=== PATIENT | female | born 1975 | race Caucasian/White ===

== ENCOUNTER 2018-10-12 22:05 | Inpatient (IN) | payer MEDICAID, OTHER ==
[~2018-10-12] VITALS: Ht 167.6 cm; Wt 68.6 kg
[2018-10-12 22:10] VITALS: Ht 167.6 cm; Wt 68.6 kg
[2018-10-12] MEDS ORDERED: morphine 4 MG/ML VIAL IV STA (22:54)
[2018-10-12] MEDS ORDERED: ONDANSETRON 4 MG INJ IV STA (22:54)
[2018-10-12] MEDS ORDERED: SOD CHLORIDE 0.9% 1,000 ML IV ONE (23:00)
[2018-10-13] VITALS (19 sets, daily range): BP systolic 80–110; BP diastolic 46–72; PULSE 56–88; RESP 15–20
--- NOTE | 2018-10-13 03:30 | CONS ---
Date/Time of Note Date/Time of Note DATE: 10/13/18 TIME: 03:09 Assessment/Plan Assessment/Plan Assessment/Plan A molar P suction curettage Result Diagram: 10/12/180 10/12/180 Results 24hrs Laboratory Tests Test 10/12/18 22:40 10/12/18 23:20 White Blood Count 10.5 Red Blood Count 4.01 L Hemoglobin 12.5 Hematocrit 37.1 Mean Corpuscular Volume 92.5 Mean Corpuscular Hemoglobin 31.2 Mean Corpuscular Hemoglobin Concent 33.7 Red Cell Distribution Width 12.3 Platelet Count 227 Mean Platelet Volume 11.7 H Immature Granulocytes % 0.200 Neutrophils % 47.7 Lymphocytes % 44.1 Monocytes % 6.4 Eosinophils % 1.1 Basophils % 0.5 Nucleated Red Blood Cells % 0.0 Immature Granulocytes # 0.020 Neutrophils # 5.0 Lymphocytes # 4.6 H Monocytes # 0.7 Eosinophils # 0.1 Basophils # 0.1 Nucleated Red Blood Cells # 0.0 Prothrombin Time 11.4 L Prothrombin Time Ratio 0.9 INR International Normalized Ratio 0.82 Sodium Level 141 Potassium Level 3.8 Chloride Level 108 Carbon Dioxide Level 27 Anion Gap 6 Blood Urea Nitrogen 10 Creatinine 0.58 Est Glomerular Filtrat Rate mL/min > 60 Glucose Level 117 Calcium Level 9.4 Total Bilirubin 0.1 L Direct Bilirubin 0.00 Indirect Bilirubin 0.1 Aspartate Amino Transf (AST/SGOT) 26 Alanine Aminotransferase (ALT/SGPT) 19 Alkaline Phosphatase 52 Total Protein 7.1 Albumin 4.0 Globulin 3.10 Albumin/Globulin Ratio 1.29 Beta HCG, Quantitative 44403.0 Urine Color YELLOW Urine Clarity CLEAR Urine pH 9.0 Urine Specific [place] 1.009 Urine Ketones NEGATIVE Urine Nitrite NEGATIVE Urine Bilirubin NEGATIVE Urine Urobilinogen NEGATIVE Urine Leukocyte Esterase NEGATIVE Urine Microscopic RBC 148 H Urine Microscopic WBC 1 Urine Hemoglobin 3+ H Urine Glucose NEGATIVE Urine Total Protein NEGATIVE Consultation Date/Type/Reason Admit Date/Time 10/13/18 Date of Consultation: Oct 13, 2018 Type of Consult PIPE THREADER Reason for Consultation Vaginal bleeding/molar Requesting Provider: PRISCILA UPTON MD Hx of Present Illness 43 y.o LMP ? ( her period been very irregular ,sometimes skip and sometimes period prolong) presents ER with vaginal bleeding with cramping pain intermittently since yesterday evening. She did EPT few times due to nausea and which was positive and checked at clinic 4days ago ,told that every thing ok without U/s U/S in ER shows possible molar explained the situation and suction curettage will be prepared. as in HPI Constitutional: no complaints, improved Eyes: no complaints ENT: no complaints Respiratory: no complaints Cardiovascular: no complaints Gastrointestinal: no complaints, pain (u/s mass in utero poss molar ) Genitourinary: no complaints, bleeding Musculoskeletal: no complaints Skin: no complaints Neurologic: no complaints Endocrine: no complaints Lymphatic: no complaints Psychological: no complaints, nl mood/affect Immunologic: no complaints Past Medical History Medical History: no pertinent history Medications none Allergies: Coded Allergies: No Known Allergy (Unverified , 10/12/18) Past Surgical History x3 Past Surgical Hx: no surgical history Family History Significant Family History: no pertinent family hx Social History Alcohol Use: none Smoking Status: Current every day smoker Drug Use: none Exam/Review of Systems Vital Signs Vitals Vital Signs Date Temp Pulse Resp B/P (MAP) Pulse Ox O2 O2 Flow FiO2 Time Delivery Rate 10/13/18 98.2 67 16 116/70 100 Room Air 01:30 (85) Exam Constitutional: alert, oriented, well developed Psych: no complaints, nl mood/affect Head: normocephalic, atraumatic Eyes: nl conjunctiva, EOMI, nl lids, nl sclera, PERRL ENMT: nl external ears & nose, nl lips & teeth, nl nasal mucosa & septum Neck: supple, non-tender Respiratory: clear to auscultation, normal air movement Cardiovascular: regular rate and rhythm, nl pulses Gastrointestinal: soft, nl liver, spleen, non-tender Genitourinary - Female: uterus (enlarged ) Musculoskeletal: nl extremities to inspection, nl gait and stance Extremities: normal pulses Neurological: CLOTH TRIMMER HAND II-XII intact, nl mental status, nl speech, nl strength Skin: nl turgor; No rash or lesions Lymph: nl lymph nodes KIMMIE WILKINSON MD Oct 13, 2018 03:25
[2018-10-13] MEDS ORDERED: ONDANSETRON 4 MG INJ IV PRN ×2 (04:00→06:30)
[2018-10-13] MEDS ORDERED: ACETAMINOPHEN 325 MG TAB PO PRN (04:00)
--- NOTE | 2018-10-13 06:00 | NUR ---
PATIENT CAME FROM ER.PICKED UP BY TRANSPORT TO SURGERY.PATIENT HAVING SURGERY .ALL BELONGINGS TAKEN BY .
--- NOTE | 2018-10-13 06:07 | PREAC ---
Date/Time of Note Date/Time of Note DATE: 10/13/18 TIME: 06:06 Anesthesia Eval and Record Evaluation Time Pre-Procedure Interview DATE: 10/13/18 TIME: 06:06 Age 43 Sex female NPO: 8 hrs Preoperative diagnosis molar Planned procedure suction D&C Past Medical History Past Medical History: None Surgery & Anesthesia Issues No known issue Meds Anticoagulation: Yes Beta Deepika within 24 hr: Yes Reason Beta Deepika not given: Pt. not on B-Deepika Current Medications Ondansetron HCl (Zofran Inj) 4 mg BRIDGE ORDER PRN IV NAUSEA AND/OR VOMITING; Start 10/13/18 at 04:00; Stop 10/14/18 at 03:59 Acetaminophen (Tylenol Tab) 650 mg ER BRIDGE PRN PO MILD PAIN(1-3)OR ELEVATED TEMP; Start 10/13/18 at 04:00; Stop 10/14/18 at 03:59 Meds reviewed: Yes Allergies Coded Allergies: No Known Allergy (Unverified , 10/12/18) Allergies Reviewed: Yes Labs/Studies Labs Reviewed: Reviewed by anesthesiologist Result Diagram: 10/12/180 10/12/18 2240 Laboratory Tests 10/12/18 22:40 Blood Bank Test 10/12/18 22:40 Blood Type A POSITIVE test: Positive Studies: ECG (n/a), CXR (n/a) Pre-procedure Exam Last vitals Vital Signs Date Temp Pulse Resp B/P (MAP) Pulse Ox O2 O2 Flow FiO2 Time Delivery Rate 10/13/18 97.8 61 18 110/60 95 Room Air 05:44 (77) Airway: Adequate mouth opening Mallampati: Mallampati I Teeth: Normal Lung: Normal Heart: Normal ASA Physical Status ASA physical status: 1 Emergency: None Planned Anesthetic General/MAC: LMA Planned Pain Management Parenteral pain med Pre-operative Attestations Prior to commencing anesthesia and surgery, the patient was re-evaluated, there was verification of: *The patient's identity *The results of appropriate recent lab work and preoperative vital signs *The above evaluation not changing prior to induction *Anesthetic plan, risk benefits, alternative and complications discussed with patient/family; questions answered; patient/family understands, accepts and wishes to proceed. MELANIE SANTOS MD Oct 13, 2018 06:07
[2018-10-13] MEDS ORDERED: METOCLOPRAMIDE 10 MG INJ ONE (06:13)
[2018-10-13] MEDS ORDERED: MIDAZOLAM 1 MG/ML 2 ML INJ ONE (06:13)
[2018-10-13] MEDS ORDERED: CEFAZOLIN 1 GM INJ ONE (06:13)
[2018-10-13] MEDS ORDERED: ONDANSETRON 4 MG INJ ONE (06:13)
[2018-10-13] MEDS ORDERED: PROPOFOL 20 ML ONE (06:13)
[2018-10-13] MEDS ORDERED: KETOROLAC 30 MG INJ ONE (06:15)
[2018-10-13] MEDS ORDERED: FENTAnyl 50 MCG/ML VIAL ONE (06:16)
--- NOTE | 2018-10-13 06:18 | ERD ---
ER Documentation Chief Complaint Chief Complaint abd pain/vaginal bleeding x 30 min. states , <3 months HPI This is a 43-year-old female with no significant past medical history who is approximately 2 months who is presenting with sudden onset moderate cramping lower abdominal pain without alleviating or exacerbating factors in addition to significant vaginal bleeding. She does not endorse any obvious clot s. She has not had any vaginal discharge or loss of fluid. She does not believe she could have a sexually transmitted infection. The patient felt fine prior to onset of her symptoms approximately 30 minutes prior to arrival to the emergency department. The patient denies feeling sick recently. The patient denies fever or chills. The patient has had no headache or vision changes. The patient does not endorse neck or back pain. The patient denies lightheadedness or dizziness. The patient has had no chest pain or trouble breathing. The patient denies nausea or vomiting. The patient denies changes to bowel movements or urination. The patient has had no focal deficits. The patient has had no weakness or numbness or tingling to the face or extremities. ROS All systems reviewed and are negative except as per history of present illness. Allergies Allergies: Coded Allergies: No Known Allergy (Unverified , 10/12/18) PMhx/Soc Medical and Surgical Hx: pt denies Medical Hx, pt denies Surgical Hx History of Surgery: No Anesthesia Reaction: No Hx Neurological Disorder: No Hx Respiratory Disorders: No Hx Cardiac Disorders: No Hx Psychiatric Problems: No Hx Miscellaneous Medical Probl: No Hx Alcohol Use: No Hx Substance Use: No Hx Tobacco Use: No Smoking Status: Current every day smoker FmHx Family History: No diabetes Physical Exam Vitals Vital Signs Date Temp Pulse Resp B/P (MAP) Pulse Ox O2 O2 Flow FiO2 Time Delivery Rate 10/13/18 98.7 68 18 118/72 100 Room Air 03:35 (87) 10/13/18 98.2 67 16 116/70 100 Room Air 01:30 (85) 10/12/18 98.1 64 17 119/87 100 Room Air 23:27 (98) 10/12/18 97.3 92 18 156/85 100 22:10 (108) Physical Exam Const: No apparent distress, well-developed, well-nourished Head: Normocephalic, Atraumatic Eyes: Normal Conjunctiva. Extraocular movements intact. Pupils equal, round and reactive to light ENT: Normal External Ears, Nose and Mouth. Neck: Full range of motion. No meningismus. Resp: Clear to auscultation bilaterally, No wheezes, rales or rhonchi Cardio: Regular rate and rhythm. No murmurs, rubs or gallops Abd: Soft, non distended. Lower abdominal tenderness. Normal bowel sounds : Vaginal bleeding Skin: No petechiae or rashes Back: No midline tenderness. No CVA tenderness Ext: No cyanosis, or edema Neur: Awake and alert, oriented 4. Cranial nerves intact. No facial droop. Normal strength, sensation and coordination. Psych: Normal Mood and Affect Result Diagram: 10/12/18223910/12/182239 Results 24 hrs Laboratory Tests Test 10/12/18 22:40 10/12/18 23:20 White Blood Count 10.5 10^3/ul Red Blood Count 4.01 10^6/ul Hemoglobin 12.5 g/dl Hematocrit 37.1 % Mean Corpuscular Volume 92.5 fl Mean Corpuscular Hemoglobin 31.2 pg Mean Corpuscular Hemoglobin Concent 33.7 g/dl Red Cell Distribution Width 12.3 % Platelet Count 227 10^3/UL Mean Platelet Volume 11.7 fl Immature Granulocytes % 0.200 % Neutrophils % 47.7 % Lymphocytes % 44.1 % Monocytes % 6.4 % Eosinophils % 1.1 % Basophils % 0.5 % Nucleated Red Blood Cells % 0.0 /100WBC Immature Granulocytes # 0.020 10^3/ul Neutrophils # 5.0 10^3/ul Lymphocytes # 4.6 10^3/ul Monocytes # 0.7 10^3/ul Eosinophils # 0.1 10^3/ul Basophils # 0.1 10^3/ul Nucleated Red Blood Cells # 0.0 10^3/ul Prothrombin Time 11.4 Sec Prothrombin Time Ratio 0.9 INR International Normalized Ratio 0.82 Sodium Level 141 mmol/L Potassium Level 3.8 mmol/L Chloride Level 108 mmol/L Carbon Dioxide Level 27 mmol/L Anion Gap 6 Blood Urea Nitrogen 10 mg/dl Creatinine 0.58 mg/dl Est Glomerular Filtrat Rate mL/min > 60 mL/min Glucose Level 117 mg/dl Calcium Level 9.4 mg/dl Total Bilirubin 0.1 mg/dl Direct Bilirubin 0.00 mg/dl Indirect Bilirubin 0.1 mg/dl Aspartate Amino Transf (AST/SGOT) 26 IU/L Alanine Aminotransferase (ALT/SGPT) 19 IU/L Alkaline Phosphatase 52 IU/L Total Protein 7.1 g/dl Albumin 4.0 g/dl Globulin 3.10 g/dl Albumin/Globulin Ratio 1.29 Beta HCG, Quantitative 74477.0 mIU/ml Urine Color YELLOW Urine Clarity CLEAR Urine pH 9.0 Urine Specific [place] 1.009 Urine Ketones NEGATIVE mg/dL Urine Nitrite NEGATIVE mg/dL Urine Bilirubin NEGATIVE mg/dL Urine Urobilinogen NEGATIVE mg/dL Urine Leukocyte Esterase NEGATIVE David/ul Urine Microscopic RBC 148 /HPF Urine Microscopic WBC 1 /HPF Urine Hemoglobin 3+ mg/dL Urine Glucose NEGATIVE mg/dL Urine Total Protein NEGATIVE mg/dl Current Medications Medications Dose Sig/Catherine Start Time Status Last (Trade) Ordered Route PRN Stop Time Admin Dose Reason Admin Morphine 4 mg ONCE STAT 10/12/18 DC 10/12/18 Sulfate IV 22:54 23:46 (morphine) 10/12/18 22:55 Ondansetron 4 mg ONCE STAT 10/12/18 DC 10/12/18 HCl (Zofran IV 22:54 23:44 Inj) 10/12/18 22:55 Sodium 1,000 ml @ Q1H ONCE 10/12/18 DC 10/12/18 Chloride 1,000 mls/hr IV 23:00 23:44 10/12/18 23:59 Procedures/MDM MDM The patient's presentation warrants further investigation. Previous medical records, if available, were reviewed. LABS The patient's laboratory testing was obtained and reviewed. No emergent treatment was required unless described below. CBC: No E/o of systemic infection or severe anemia or thrombocytopenia CMP: No E/o severe acidosis or alkalosis or renal failure or liver disease or diabetic ketoacidosis PT/INR: No E/o significant coagulopathy Urine: No E/o acute infection. Positive for hematuria [facility] Imaging and Radiology interpretation reviewed. US Pelvis No live intrauterine identified. Heterogeneous partially cystic mass within uterus with surrounding vascularity. Appearance is suggestive of a molar . Recommend correlation quantitative beta HCG. Simple left ovarian cyst. Right ovary not identified. Trace pelvic free fluid No adnexal mass or significant free fluid to suggest ectopic , although this cannot be excluded. Electronically viewed and signed by .Mele Shankar MD, MD on 10/13/2018 00:51 TREATMENT/DISPOSITION The patient presents for abdominal pain and vaginal bleeding. The patient's blood work is reassuring. However, the ultrasound reveals findings concerning for a molar . The on-call freight air brake fitter, Dr. Sol, was consulted to evaluate the patient. The patient is likely to require operative intervention this morning via a dilation and curettage. The patient was treated with IV fluids, morphine and Zofran with some im provement of her pain.. At this time, I feel that the patient requires admission for further evaluation and management. The patient will be admitted to the Obstetric service. The patient was accepted by Dr. Sol on 10/13/2018 Disclaimer: Inadvertent spelling and grammatical errors are likely due to EHR/dictation software use and do not reflect on the overall quality of patient care. Note that the electronic time recorded on this note does not necessarily reflect the actual time of the patient encounter. Departure Diagnosis: Primary Impression: Hydatidiform mole Hydatidiform mole type: unspecified Qualified Codes: O01.9 - Hydatidiform mole, unspecified Additional Impressions: Abdominal pain Abdominal location: unspecified location Qualified Codes: R10.9 - Unspecified abdominal pain Vaginal bleeding Elevated serum hCG Condition: PRISCILA Avila MD Oct 13, 2018 06:18
[2018-10-13] MEDS ORDERED: HYDROmorphONE 1 MG/5 ML IV SYRINGE IV PRN ×3 (06:30)
[2018-10-13] MEDS ORDERED: DIPHENHYDRAMINE 50 MG INJ IV PRN (06:30)
[2018-10-13] MEDS ORDERED: MEPERIDINE 25 MG INJ IV PRN (06:30)
[2018-10-13] MEDS ORDERED: OXYTOCIN 10 UNIT INJ ONE (06:38)
--- NOTE | 2018-10-13 06:49 | NUR ---
pacu pt from or on o2 mask NO RESP DISTRESS AROUSABLE HAS IV ACCESS ON RT AC AND IS PATENTNO VAGINAL BLEEDING
--- NOTE | 2018-10-13 06:50 | SIPON ---
Date/Time of Note Date/Time of Note DATE: 10/13/18 TIME: 06:47 Operative Report Preoperative Diagnosis molar Postoperative Diagnosis see pathologic report grossly appear to be molar Operation/Procedure Performed suction curettage separate uterine curetting for r/o chorio Surgeon see signature line training assistant MT Anesthesia: general Estimated blood loss: 50 - 100 ml's Transfusion Required none Specimen POC, ( molar ) endometrial curettings Grafts/Implants none Complications none KIMMIE WILKINSON MD Oct 13, 2018 06:50
--- NOTE | 2018-10-13 06:53 | PD.PPDC ---
LITHOGRAPHIC PLATE MAKER APPRENTICE Discharge Instruction Diagnosis [id number] Final Diagnosis: Ayctw1y molar Condition [id number] Patient Condition: Tenrf9p Stable Diet [id number] Diet: Vxxtj9i Resume Regular Diet Activity/Restrictions [id number] Activity: Fvihj2k May Shower Dmoak0Eq Restrictions: Oryfo7f No Sexual Activity Nothing in the Vagina No [place] No Tampons, douche Wound/Drain Care Instructions Additional Instructions: make sure to be f/u with her PMD or OBGYN for HCG level for post molar prenancy care have her physician gets pathologic report from [facility] Follow-up Follow-up with Physician: 2, Week/Weeks Return to clinic for [id number] PRECISION LAYOUT WORKER Instructions: [id number] Fever greater than 101 Chills Worsening abdominal pain Excessive Vaginal Bleeding More than 2 pads per hour Unable to tolerate diet KIMMIE WILKINSON MD Oct 13, 2018 06:53
--- NOTE | 2018-10-13 07:23 | PAC ---
Date/Time of Note Date/Time of Note DATE: 10/13/18 TIME: 07:23 Post-Anesthesia Notes Post-Anesthesia Note Last documented vital signs Vital Signs Date Temp Pulse Resp B/P (MAP) Pulse Ox O2 O2 Flow FiO2 Time Delivery Rate 10/13/18 97.8 61 18 110/60 95 Room Air 05:44 (77) Activity: WNL Respiratory function: WNL Cardiovascular function: WNL Mental status: Baseline Pain reasonably controlled: Yes Hydration appropriate: Yes Nausea/Vomiting absent: No MELANIE SANTOS MD Oct 13, 2018 07:23
--- NOTE | 2018-10-13 08:00 | NUR ---
Received pt from PACU, s/p suction and curettage. Pt stable, denies pain/discomfort, family at bedside, pt has d/c order.
--- NOTE | 2018-10-13 08:21 | NUR ---
PACU PT AWAKE ALERT ROOM AIR NO C/O PAIN NO BLEEDING NO RESP DISTRESS FAMILY WAS CALLED AND LEFT MASSAGE REPORT GIVEN TO ZHOU KRAUSE
--- NOTE | 2018-10-13 08:23 | OPR ---
DATE OF OPERATION: 10/13/2018 PREOPERATIVE DIAGNOSIS: Molar . POSTOPERATIVE DIAGNOSIS: Molar . See pathological report. OPERATION PERFORMED: Suction curettage and separate uterine curettings. ANESTHESIA: General. ANESTHESIOLOGIST: Dr. Em. ESTIMATED BLOOD LOSS: Less than 100 mL. PROCEDURE: Under proper induction of general anesthesia, the patient was placed in dorsal lithotomy position. Perineal area and vagina wall was prepped and draped in usual aseptic manner. On inspecti on, there was no abnormal lesion on the external genitalia. Bimanual examination, uterus felt to be very soft approximately 12 weeks' gestational size and there was no palpable adnexal pathology. Weig hted speculum, cervix was grasped with a single tooth tenaculum, which was clear and the cervix was d ilated up after the uterine cavity was sounded, which was 12 cm, and cervix was dilated up to 9 and t he size 8 suction curette was introduced and the entire cavity was suctioned with obtaining large melani unt of tissue followed by sharp uterine curettage, which was separately obtained and sent separately and then re-suctioned the cavity until it was empty. 10 units of Pitocin was given. No significant bleeding noted. Procedure completed. The patient sent to recovery room in stable condition. Dictated By: ODALIS MERCER/DONALDO Conf#: [id number] DID#: [id number] CC: ODALIS WILKINSON MD;*EndCC*
--- NOTE | 2018-10-13 10:25 | NUR ---
DISCHARGE NOTES PT D/C TO HOME VIA WHEELCHAIR ACCOMPANIED BY SPOUSE. IV REMOVED, CATHETER INTACT. DISCHARGE INSTRUCTIONS PROVIDED WITH THE OPPORTUNITY TO ASK QUESTIONS. INFORMED PT TO FOLLOW UP WITH PCP IN 1-2 WEEKS. INFORMED PT TO CALL 911 OR GO TO THE NEAREST EMERGENCY ROOM IF EXPERIENCING CHEST PAIN, SHORTNESS OF BREATH, DIFFICULTY SPEAKING, VISION CHANGES, CONFUSION,OR ANY DISCOMFORT. PT VERBALIZES UNDERSTANDING OF DISCHARGE INSTRUCTIONS. PT ALERT, ORIENTED, AND STABLE UPON DISCHARGE.
== END 2018-10-13 10:30 | disposition home or self-care (01) | DRG 833 ==
LOC: FTE 22:05 → 2NE 10-13 03:54
PROVIDERS: ADMIT Obstetrics & Gynecology; ATTEND Obstetrics & Gynecology
PROC: 10D07Z8 Extraction of Products of Conception, Other, Via Natural or Artificial Opening (ICD-10-PCS; principal; 2018-10-13 06:00)
DX: O01.9 Hydatidiform mole, unspecified (principal)
CPT/HCPCS: 36415; 76801; 76817; 80053; 81001; 84702; 85025; 85610; 86900; 86901; 88305; 96374; 96375; J0690; J1885; J2250; J2270; J2405; J2590; J2765; J3010; J7030